=== PATIENT | male | born 1995 | race Caucasian/White ===

== ENCOUNTER 2016-07-26 18:25 | Emergency (ER) | payer SELFPAY ==
--- NOTE | ~2016-07-26 | ER ---
PATIENT'S NAME: [facility]NACIA [facility] AGE: 20 Y [address] ROOM: [place] [address] LOCATION: ED ADMIT DATE: 07/26/2016 ER/Outpatient Report DISCHARGE DATE: 07/26/2016 FAMILY PHYSICIAN: PHYSICIAN, NO ATTENDING PHYSICIAN: Kirk Meza TIME SEEN: 1835 hours. HISTORY OF PRESENT ILLNESS: The patient is a 20-year-old male who presents with pain involving the right upper molar. The pain started today. PAST MEDICAL HISTORY: ALLERGIES: LATEX. HOME MEDICATIONS: None. SURGERIES: Tonsillectomy. SOCIAL HISTORY: Smoker, pack a day. He is . REVIEW OF SYSTEMS: GENERAL: No recent health issues. HEAD AND EENT: Pain, right upper molar. NECK: No swollen glands or pain. OBJECTIVE FINDINGS: VITAL SIGNS: Reviewed. He was afebrile. GENERAL: He did not appear to be in any acute distress. HEENT: Exam of his mouth, right upper molar which was tender to percussion. There was a small blood blister on the gum line; otherwise, no other lesions were noted. ASSESSMENT: Dental pain, right upper molar. PLAN: Amoxil 500 t.i.d. Recommend to use ibuprofen 800 3 times a day. See his dentist on Thursday. PATIENT'S NAME: IGNACIA [facility] AGE: 20 Y [address] ROOM: [place] [address] LOCATION: [facility] ADMIT DATE: 07/26/2016 ER/Outpatient Report DISCHARGE DATE: 07/26/2016 FAMILY PHYSICIAN: PHYSICIAN, NO ATTENDING PHYSICIAN: Kirk Meza DAHLIA VILLATORO FOR MD NITISH TAPIA/darinel /[id number] d: 07/26/[id number] t: 08/31/16 0455, OUTPATIENT REPORT
== END 2016-07-26 18:45 | disposition disaster alternative care site (69) ==
LOC: GMED 18:25
DX: K08.89 Other specified disorders of teeth and supporting structures (principal); F17.210 Nicotine dependence, cigarettes, uncomplicated; Z91.040 Latex allergy status; Z90.89 Acquired absence of other organs